=== PATIENT | female | born 1990 | race Caucasian/White ===

== ENCOUNTER → 2020-10-05 | Outpatient (CLI) | payer SELFPAY | LOC: ZCOL.LAB 17:10 | DX: Z20.828 Contact with and (suspected) exposure to other viral communicable diseases (principal) ==

== ENCOUNTER 2020-12-31 08:49 | Inpatient (IN) | payer OTHER ==
[~2020-12-31] VITALS: Ht 172.7 cm; Wt 118.2 kg
[2021-01-01] VITALS (57 sets, daily range): BP systolic 107–158; BP diastolic 60–95; PULSE 89–117; TEMP 98.1–98.4
--- NOTE | 2021-01-01 07:20 | NUR ---
0720- 39.3 G4L3 patient arrives on unit for scheduled IOL. Ambulatory to LDR5 with self. Oriented to room. Patient denies any LOF, VB, or regular ctx. Reports normal movement. 0728- EFM explained and placed. Tracing well. VS obtained. Assessment complete. 0745- IV to right hand. Routine labs obtained via IV site. LR infusing. Consent forms explained and signed. 0810- SVE by this RN and vertex. Pitocin explained and started at 2mu. 0830- Dr. Taylor to bedside and reviews plan of care with patient. AROM at this time by provider. No fluid noted. Pads applied, will continue to monitor. Patient repositioned. Denies questions or needs at this time.
[2021-01-01 08:01] LABS: BASO % 0.1 % (0.0-2.0); EOS # 0.1 (0.0-0.7); GRAN # 7.7 (1.4-6.5); GRAN % 76.4 % (42.2-75.2); HEMATOCRIT 37.7 % (37.0-47.0); HEMOGLOBIN 12.8 g/dl (12.5-16.0); LYMPH # 1.6 (1.2-3.4); LYMPH % 15.9 % (20.0-51.0); MEAN CELL VOLUME 89 fl (80.0-100.0); MEAN CORPUSCULAR HEMOGLOBIN 30 pg (27.0-31.0); MEAN CORPUSCULAR HGB CONC 34 g/dl (33.0-37.0); MEAN PLATELET VOLUME 9.8 fl (7.4-10.4); MONO # 0.6 (0.1-0.6); MONO % 6.3 % (1.7-9.3); PLATELET COUNT 229 K/mm3 (130-400); RED BLOOD COUNT 4.22 M/mm3 (4.10-5.30); REDCELL DISTRIBUTION WIDTH-CV 13.5 % (11.5-14.5)
[2021-01-01] MEDS ORDERED: PRENATAL TABLET PO (08:11)
[2021-01-01] MEDS ORDERED: FENUGREEK PO (08:13)
--- NOTE | 2021-01-01 15:55 | NUR ---
1555- FHR with subtle decels. Ctx tracing intermittently, RN at bedside palpating ctx and adj. EFM. Dr. Taylor to bedside. SVE per provider /2. Patient wedge left. Epidural tubing noted to be disconnected at this time. 1600- Lashonda Beverly CRNA notified and to bedside. 1605- Patient to edge of bed for epidural replacement. Epidural catheter removed. 1611- Epidural placed and test dose at this time by Lashonda Beverly CRNA. See anesthesia record. 1618- Patient repositioned high fowlers, wedge left. Plan of care reviewed with patient and spouse who verbalize understanding.
--- NOTE | 2021-01-01 17:00 | NUR ---
Early and variable decels noted. Patient right lateral in stirrups. Dr. Taylor remains on unit and reviews strips.
--- NOTE | 2021-01-01 17:10 | NUR ---
MVU 235
--- NOTE | 2021-01-01 18:10 | NUR ---
MVU 205
--- NOTE | 2021-01-01 18:56 | NUR ---
1845 Dr. Taylor to room. SVE complete/+1. Patient prepped for delivery. 1849 Patient begins to push with contractions, pushing well. 185 Spontaneous vaginal delivery of viable female infant by Dr. Haskins. Cord clamped and cut and to the care of the nursery RN. 190 Spontaneous delivery of placenta by Dr. Taylor. Repair of 2nd degree laceration by Dr. Taylor. Retained placenta noted and manual extraction performed by Dr. Taylor. 1908 Hemabate given. 1915 Cytotec given. See eMAR for details.
[2021-01-02 03:30] VITALS: BP 136/82; PULSE 99; TEMP 98
--- NOTE | 2021-01-02 06:30 | NUR ---
Rests in bed, alert. Denies any needs at this time.
[2021-01-02 09:00] VITALS: BP 131/64; PULSE 102; TEMP 98
--- NOTE | 2021-01-02 09:00 | NUR ---
Rests in bed, alert. Denies any discomfort or pain at this time.
[2021-01-02] MEDS ORDERED: IBU800 M1 PO (09:45)
[2021-01-02 12:30] VITALS: BP 130/80; PULSE 99; TEMP 97.4
[2021-01-02 16:15] VITALS: BP 141/85; PULSE 100; TEMP 97.9
--- NOTE | 2021-01-02 20:15 | NUR ---
Discharge instructions reviewed with patient and spouse, verbalized understanding. Footprints sheet completed and ID bands checked. Pt ambulatory off unit accompanied by spouse and this RN.
== END 2021-01-02 20:15 | disposition home or self-care (01) | DRG 806 ==
LOC: OB 08:49 → LDR 01-01 07:12 → OB 01-01 08:50 → LDR 01-01 09:10 → OB 01-01 20:50
PROVIDERS: ADMIT Student in an Organized Health Care Education/Training Program
PROC: 10E0XZZ Delivery of Products of Conception, External Approach (ICD-10-PCS; principal; 2021-01-01)
PROC: 0KQM0ZZ Repair Perineum Muscle, Open Approach (ICD-10-PCS; 2021-01-01)
PROC: 10907ZC Drainage of Amniotic Fluid, Therapeutic from Products of Conception, Via Natural or Artificial Opening (ICD-10-PCS; 2021-01-01)
PROC: 3E033VJ Introduction of Other Hormone into Peripheral Vein, Percutaneous Approach (ICD-10-PCS; 2021-01-01)
DX: O66.0 Obstructed labor due to shoulder dystocia (principal); O72.1 Other immediate postpartum hemorrhage; Z37.0 Single live birth; O99.214 Obesity complicating childbirth; E66.9 Obesity, unspecified; O87.4 Varicose veins of lower extremity in the puerperium; O70.1 Second degree perineal laceration during delivery; Z3A.39 39 weeks gestation of pregnancy; O76 Abnormality in fetal heart rate and rhythm complicating labor and delivery
CPT/HCPCS: J0690; J2590; J7120

== ENCOUNTER → 2020-12-31 | Outpatient (CLI) | payer SELFPAY ==
[~2020-12-31] MED LIST: FENUGREEK PO; IBU800 M1 PO; PRENATAL TABLET PO
== END ==
LOC: ZCOL.LAB
DX: Z20.822 Contact with and (suspected) exposure to COVID-19 (principal)